=== PATIENT | male | born 1985 | race Caucasian/White ===

== ENCOUNTER 2021-11-04 18:04 | Inpatient (IN) | payer BC, SELFPAY ==
[~2021-11-04 18:04] MED LIST: Iopamidol 370 76% 100 ML VIAL ONE
[2021-11-04] MEDS ORDERED: Ondansetron PF 4 MG/2 ML Vial ONE (18:52)
[2021-11-04] MEDS ORDERED: Morphine 4 MG/ML VIAL ONE (18:52)
[2021-11-04 19:08] LABS: #Monocytes 0.6 10x3/uL (0.0-1.1); #Neutrophils 7.5 10x3/uL (1.5-8.4); %Basophils 0.3 % (0.0-2.0); %Eosinophils 0.2 % (0.0-6.0); %Lymphocytes 9.2 % (18.0-47.0); %Monocytes 6.2 % (0.0-10.0); %Neutrophils 83.7 % (40.0-75.0); Hemoglobin 14.2 g/dL (13.5-17.5); Mean Corpuscular HGB CONC 34.1 g/dL (32.0-36.0); Mean Corpuscular Hemoglobin 29.3 pg (27.0-33.0); Platelet Count 305 10x3/uL (150-450); RBC Distribution Width 11.9 % (11.5-14.5); Red Blood Cell (RBC) Count 4.84 10x6/uL (4.32-5.72)
[2021-11-04 19:13] LABS: Actual Bicarbonate (HCO3v) 22 mEq/L (22-28); Base Excess -0.4 mEq/L (-2.0 to +3.0); Calcium, Ionized (venous) 1.06 mmol/L (1.16-1.32); Chloride (VBG) 95 mmol/L (98-106); Potassium (VBG) 4.04 mmol/L (3.70-5.30); Puncture Site Other Site; Sodium 129.3 mmol/L (133-146); pH (venous) 7.48 (7.32-7.43)
[2021-11-04 19:20] LABS: ALT (SGPT) 12 U/L (8-55); AST (SGOT) 12 U/L (5-34); Albumin 3.6 g/dL (3.5-5.0); Alkaline Phosphatase 73 U/L (40-110); Anion Gap 17 mmol/L (10-20); BUN (Urea Nitrogen) 11 mg/dL (8.9-20.6); Bilirubin, Total 1.2 mg/dL (0.2-1.2); CK (CPK) 13 U/L (30-200); Calc. Creatinine Clearance 0 mL/min (70-130); Calcium 9.3 mg/dL (7.8-10.44); Carbon Dioxide 21 mmol/L (22-29); Chloride 96 mmol/L (98-107); Globulin 3.9 g/dL (2.4-3.5); Glucose 349 mg/dL (70-105); Lipase 8 U/L (8-78); Magnesium 1.6 mg/dL (1.6-2.6); Potassium 4.1 mmol/L (3.5-5.1); Protein, Total 7.5 g/dL (6.0-8.3); Sodium 130 mmol/L (136-145)
[2021-11-04] MEDS ORDERED: Cefepime 2 GM VIAL ONE (23:28)
[2021-11-05 00:27] LABS: SARS-CoV-2 NAA Rapid Test Not Detected (NotDetected)
[2021-11-05 00:27] LABS: Troponin I Less than 0.010 ng/mL (< 0.028)
[2021-11-05 00:37] LABS: Acetaminophen Less than 10.0 mcg/mL (10.0-30.0); Alcohol Less than 10 mg/dL (Less than 10); Salicylate Less than 8.0 mg/dL (15.0-30.0)
[2021-11-05] MEDS ORDERED: Insulin Regular 300 UNITS/3 ML VIAL ONE (00:40)
[2021-11-05 00:58] VITALS: BMI 40.1
[2021-11-05] MEDS ORDERED: Norepinephrine 8 MG/0.9% NS 250 ML IVPB SCH (01:00)
[2021-11-05] MEDS ORDERED: Cefepime 2 GM in Sodium Chloride 0.9% 100 ML IVPB SCH (01:00)
[2021-11-05] MEDS ORDERED: Ondansetron PF 4 MG/2 ML Vial IVP PRN (01:17)
[2021-11-05] MEDS ORDERED: Carvedilol 6.25 MG TAB PO SCH (01:30)
[2021-11-05] MEDS ORDERED: Insulin Regular 300 UNITS/3 ML VIAL IVP SCH (01:30)
[2021-11-05] MEDS ORDERED: Morphine 4 MG/ML VIAL SLOW IVP SCH (01:30)
[2021-11-05] MEDS: Lidocaine 5% Patch TD SCH (01:46)
[2021-11-05] MEDS ORDERED: VANCOMYCIN 2 GRAM/400 ML BAG 2 GM in Premix Bag 1 BAG IVPB SCH (03:00)
[2021-11-05] MEDS: Ketorolac Tromethamine 30 MG/ML VIAL IVP SCH ×4 (03:00→19:41)
[2021-11-05] MEDS ORDERED: HumaLOG 300 UNITS/3 ML VIAL SC SCH ×3 (03:15→12:00)
[2021-11-05 03:31] LABS: Manual Diff?? YES; Mean Corpuscular HGB CONC 33.7 g/dL (32.0-36.0); Mean Corpuscular Hemoglobin 29.2 pg (27.0-33.0); Mean Corpuscular Volume 86.6 fl (81.2-95.1); Mean Platelet Volume 10.8 fl (7.4-10.4); Platelet Count 305 10x3/uL (150-450); Red Blood Cell (RBC) Count 4.79 10x6/uL (4.32-5.72); White Blood Cell (WBC) Count 13.2 10x3/uL (3.5-10.5)
[2021-11-05 03:32] LABS: MDiff Complete? YES
[2021-11-05 03:41] LABS: Anion Gap 19 mmol/L (10-20); BUN (Urea Nitrogen) 13 mg/dL (8.9-20.6); Calc. Creatinine Clearance 302 mL/min (70-130); Calcium 8.3 mg/dL (7.8-10.44); Carbon Dioxide 19 mmol/L (22-29); Chloride 97 mmol/L (98-107); Glucose 310 mg/dL (70-105); Magnesium 1.6 mg/dL (1.6-2.6); Potassium 4.2 mmol/L (3.5-5.1); Sodium 131 mmol/L (136-145)
[2021-11-05 03:42] LABS: Troponin I Less than 0.010 ng/mL (< 0.028)
[2021-11-05 04:09] LABS: Band 10 % (5-11); Lymphocytes 1 % (21-51); Monocytes 4 % (0-10); Neutrophil 84 % (42-75); Platelet Morphology Comment Appears Adequate; Reactive Lymphocytes 1 % (0-10)
[2021-11-05] MEDS: Cefepime 2 GM in Sodium Chloride 0.9% 100 ML IVPB SCH ×2 (09:19→15:56)
[2021-11-05] MEDS: metFORMIN 500 MG TAB PO SCH ×2 (09:20→15:57)
[2021-11-05] MEDS: Lantus 1000 UNITS/10 ML VIAL SC SCH (09:21)
[2021-11-05] MEDS: Vancomycin 1.5 GRAM/300 ML BAG 1.5 GM in Premix Bag 1 BAG IVPB SCH ×2 (11:29→19:41)
[2021-11-05] MEDS: HumaLOG 300 UNITS/3 ML VIAL SC PRN ×3 (11:55→20:23)
[2021-11-05] MEDS ORDERED: Dextrose 50% Abboject 50 ML SYRINGE IVP PRN (12:00)
[2021-11-05] MEDS ORDERED: Dextrose 5% in Water 1,000 ML IV PRN (12:00)
[2021-11-05] MEDS: Transdermal Patch Removal TOP SCH (13:40)
[2021-11-05] MEDS: Carvedilol 6.25 MG TAB PO SCH (15:56)
[2021-11-05 16:15] LABS: Amphetamine Not Detected (NotDetected); Barbiturates Screen Not Detected (NotDetected); Benzodiazepine Screen Not Detected (NotDetected); Cocaine Metabolite Screen Not Detected (NotDetected); Methadone Not Detected (NotDetected); Methamphetamine Not Detected (NotDetected); Opiate Screen Detected (NotDetected); Oxycodone Screen Not Detected (NotDetected); Phencyclidine (PCP) Not Detected (NotDetected); THC/Cannabinoid Screen Not Detected (NotDetected); Tricyclic Screen Not Detected (NotDetected)
[2021-11-06] MEDS: Cefepime 2 GM in Sodium Chloride 0.9% 100 ML IVPB SCH ×2 (00:43→08:33)
[2021-11-06] MEDS: Lidocaine 5% Patch TD SCH (02:18)
[2021-11-06] MEDS: Ketorolac Tromethamine 30 MG/ML VIAL IVP SCH ×2 (02:18→08:33)
[2021-11-06 03:29] LABS: #Eosinphils 0.1 10x3/uL (0.0-0.5); #Monocytes 0.7 10x3/uL (0.0-1.1); #Neutrophils 6.2 10x3/uL (1.5-8.4); %Basophils 0.2 % (0.0-2.0); %Eosinophils 0.6 % (0.0-6.0); %Lymphocytes 13.1 % (18.0-47.0); %Monocytes 8.5 % (0.0-10.0); %Neutrophils 77.2 % (40.0-75.0); Mean Corpuscular HGB CONC 33.5 g/dL (32.0-36.0); Mean Corpuscular Volume 86.4 fl (81.2-95.1); Mean Platelet Volume 10.5 fl (7.4-10.4); Platelet Count 268 10x3/uL (150-450); RBC Distribution Width 12.1 % (11.5-14.5); Red Blood Cell (RBC) Count 4.49 10x6/uL (4.32-5.72)
[2021-11-06 03:36] LABS: Vancomycin, Trough 10.3 ug/mL
[2021-11-06] MEDS: HumaLOG 300 UNITS/3 ML VIAL SC PRN ×5 (04:00→20:45)
[2021-11-06] MEDS: VANCOMYCIN 1.75 GM/350 ML BAG 1.75 GM in Premix Bag 1 BAG IVPB SCH ×2 (04:01→12:05)
[2021-11-06 06:35] LABS: Anion Gap 17 mmol/L (10-20); BUN (Urea Nitrogen) 19 mg/dL (8.9-20.6); CRP (Inflammatory) 19.99 mg/dL (= or < 0.5); Calc. Creatinine Clearance 316 mL/min (70-130); Carbon Dioxide 18 mmol/L (22-29); Chloride 100 mmol/L (98-107); Glucose 274 mg/dL (70-105); Potassium 3.8 mmol/L (3.5-5.1); Sodium 131 mmol/L (136-145)
[2021-11-06] MEDS: Carvedilol 6.25 MG TAB PO SCH ×2 (08:34→16:49)
[2021-11-06] MEDS: Lantus 1000 UNITS/10 ML VIAL SC SCH (08:34)
[2021-11-06] MEDS: Transdermal Patch Removal TOP SCH (13:53)
[2021-11-06] MEDS: cefTRIAXone\\ROCEPHIN 2 GM in Sodium Chloride 0.9% 100 ML IVPB SCH (15:13)
[2021-11-06] MEDS ORDERED: Acetaminophen 325 MG TAB PO PRN (17:09)
[2021-11-06] MEDS: HYDROcodone/Acetaminophen 5/325 mg Tablet PO PRN (17:27)
[2021-11-07] MEDS: Lidocaine 5% Patch TD SCH (01:19)
[2021-11-07] MEDS: HumaLOG 300 UNITS/3 ML VIAL SC PRN ×5 (01:20→21:21)
[2021-11-07] MEDS: HYDROcodone/Acetaminophen 5/325 mg Tablet PO PRN ×4 (01:28→20:30)
[2021-11-07 03:59] LABS: #Eosinphils 0.1 10x3/uL (0.0-0.5); #Monocytes 0.8 10x3/uL (0.0-1.1); #Neutrophils 5.9 10x3/uL (1.5-8.4); %Basophils 0.3 % (0.0-2.0); %Eosinophils 1.8 % (0.0-6.0); %Lymphocytes 11.3 % (18.0-47.0); %Monocytes 10.1 % (0.0-10.0); %Neutrophils 76.2 % (40.0-75.0); Hemoglobin 12.1 g/dL (13.5-17.5); Mean Corpuscular HGB CONC 33.8 g/dL (32.0-36.0); Mean Corpuscular Volume 85.9 fl (81.2-95.1); Mean Platelet Volume 11.1 fl (7.4-10.4); Platelet Count 261 10x3/uL (150-450); RBC Distribution Width 12.2 % (11.5-14.5); Red Blood Cell (RBC) Count 4.17 10x6/uL (4.32-5.72); White Blood Cell (WBC) Count 7.8 10x3/uL (3.5-10.5)
[2021-11-07 04:28] LABS: Anion Gap 14 mmol/L (10-20); BUN (Urea Nitrogen) 13 mg/dL (8.9-20.6); Calc. Creatinine Clearance 363 mL/min (70-130); Carbon Dioxide 23 mmol/L (22-29); Chloride 102 mmol/L (98-107); Glucose 239 mg/dL (70-105); Sodium 135 mmol/L (136-145)
[2021-11-07] MEDS: Lantus 1000 UNITS/10 ML VIAL SC SCH (08:16)
[2021-11-07] MEDS: Carvedilol 6.25 MG TAB PO SCH ×2 (08:16→16:18)
[2021-11-07] MEDS ORDERED: Morphine 4 MG/ML VIAL SLOW IVP PRN (11:14)
[2021-11-07] MEDS: Transdermal Patch Removal TOP SCH (14:50)
[2021-11-07] MEDS: cefTRIAXone\\ROCEPHIN 2 GM in Sodium Chloride 0.9% 100 ML IVPB SCH (16:18)
[2021-11-08] MEDS: Lidocaine 5% Patch TD SCH (02:31)
[2021-11-08 04:41] LABS: #Eosinphils 0.2 10x3/uL (0.0-0.5); #Monocytes 0.7 10x3/uL (0.0-1.1); #Neutrophils 4.7 10x3/uL (1.5-8.4); %Basophils 0.4 % (0.0-2.0); %Eosinophils 2.6 % (0.0-6.0); %Lymphocytes 18.5 % (18.0-47.0); %Monocytes 10.3 % (0.0-10.0); %Neutrophils 67.8 % (40.0-75.0); Hemoglobin 13.1 g/dL (13.5-17.5); Mean Corpuscular HGB CONC 33.2 g/dL (32.0-36.0); Mean Corpuscular Hemoglobin 28.7 pg (27.0-33.0); Mean Corpuscular Volume 86.6 fl (81.2-95.1); Mean Platelet Volume 11.2 fl (7.4-10.4); Platelet Count 299 10x3/uL (150-450); RBC Distribution Width 12.2 % (11.5-14.5); Red Blood Cell (RBC) Count 4.56 10x6/uL (4.32-5.72); White Blood Cell (WBC) Count 6.9 10x3/uL (3.5-10.5)
[2021-11-08] MEDS: HumaLOG 300 UNITS/3 ML VIAL SC PRN (04:50)
[2021-11-08 04:53] LABS: Anion Gap 15 mmol/L (10-20); BUN (Urea Nitrogen) 16 mg/dL (8.9-20.6); Calc. Creatinine Clearance 363 mL/min (70-130); Calcium 9.8 mg/dL (7.8-10.44); Carbon Dioxide 25 mmol/L (22-29); Chloride 99 mmol/L (98-107); Glucose 241 mg/dL (70-105); Potassium 4.4 mmol/L (3.5-5.1); Sodium 135 mmol/L (136-145)
[2021-11-08 05:09] LABS: INR-International Normal Ratio 1.1; Prothrombin Time 11.5 sec (9.5-12.1)
[2021-11-08] MEDS: HYDROcodone/Acetaminophen 5/325 mg Tablet PO PRN (05:42)
[2021-11-08] MEDS: Carvedilol 6.25 MG TAB PO SCH (08:27)
[2021-11-08] MEDS: Lantus 1000 UNITS/10 ML VIAL SC SCH (08:27)
[2021-11-08 12:05] VITALS: BP 130/83; TEMP 97.6
[2021-11-08] MEDS: cefTRIAXone\\ROCEPHIN 2 GM in Sodium Chloride 0.9% 100 ML IVPB SCH (14:14)
== END 2021-11-08 14:59 | disposition home or self-care (01) | DRG 853 ==
LOC: CSHERS 18:04 → CSHIMCU 11-05 00:10 → CSHTELE 11-07 10:51
PROVIDERS: ADMIT Family Medicine; ATTEND Family Medicine
PROC: 3E03329 Introduction of Other Anti-infective into Peripheral Vein, Percutaneous Approach (ICD-10-PCS; 2021-11-04)
PROC: 0JBR0ZZ Excision of Left Foot Subcutaneous Tissue and Fascia, Open Approach (ICD-10-PCS; principal; 2021-11-07)
DX: A40.9 Streptococcal sepsis, unspecified (principal); J96.01 Acute respiratory failure with hypoxia; E87.1 Hypo-osmolality and hyponatremia; M86.8X7 Other osteomyelitis, ankle and foot; E87.3 Alkalosis; L03.116 Cellulitis of left lower limb; E11.52 Type 2 diabetes mellitus with diabetic peripheral angiopathy with gangrene; I96 Gangrene, not elsewhere classified; L97.528 Non-pressure chronic ulcer of other part of left foot with other specified severity; J98.11 Atelectasis; E11.69 Type 2 diabetes mellitus with other specified complication; E11.628 Type 2 diabetes mellitus with other skin complications; R07.89 Other chest pain; L08.9 Local infection of the skin and subcutaneous tissue, unspecified; R59.0 Localized enlarged lymph nodes; E11.621 Type 2 diabetes mellitus with foot ulcer; E11.42 Type 2 diabetes mellitus with diabetic polyneuropathy; Z20.822 Contact with and (suspected) exposure to COVID-19; Z79.899 Other long term (current) drug therapy; Z79.4 Long term (current) use of insulin; Z81.1 Family history of alcohol abuse and dependence
CPT/HCPCS: 36415; 36416; 71045; 71275; 74174; 74177; 80048; 80053; 80202; 80306; 80307; 82550; 82805; 83036; 83605; 83690; 83735; 83880; 84443; 84484; 85025; 85610; 85652; 86140; 87040; 87077; 87149; 87186; 93005; 94760; 96365; 96375; J0692; J0696; J1815; J1885; J1956; J2270; J2405; J3370; J3490; Q9967; U0002

== ENCOUNTER 2023-01-15 12:40 | Outpatient (CLI) | payer BC ==
[~2023-01-15 12:40] MED LIST changes: -Iopamidol 370 76% 100 ML VIAL ONE; +Magnevist 469MG/ML 20 ML VIAL ONE
== END 2023-01-15 12:41 | disposition home or self-care (01) ==
LOC: CSHMRI 12:40
PROVIDERS: ATTEND Family Medicine
DX: M86.9 Osteomyelitis, unspecified (principal); L97.511 Non-pressure chronic ulcer of other part of right foot limited to breakdown of skin; R93.6 Abnormal findings on diagnostic imaging of limbs

== ENCOUNTER 2023-02-16 06:11 | Day surgery (SDC) | payer BC ==
[2023-02-15 11:16] VITALS: BMI 40.0
[2023-02-16] MEDS ORDERED: Lidocaine 2% 10 ML INJ ONE (10:35)
[2023-02-16] MEDS ORDERED: Bupivacaine PF 0.5% 30 ML VIAL ONE (10:35)
[2023-02-16] MEDS ORDERED: CEFAZOLIN 2 GM VIAL ONE (12:28)
[2023-02-16] MEDS ORDERED: PROPOFOL 20 ML ONE (12:43)
[2023-02-16] MEDS ORDERED: Midazolam HCl 2 mg/2 ml Vial ONE (12:44)
[2023-02-16] MEDS ORDERED: Fentanyl 250 MCG/5 ML VIAL ONE (12:44)
== END 2023-02-16 15:25 | disposition home or self-care (01) ==
LOC: CSHSDC 06:11
PROVIDERS: ATTEND Podiatrist Foot & Ankle Surgery
PROC: 0Y6R0Z3 Detachment at Right 2nd Toe, Low, Open Approach (ICD-10-PCS; principal; 2023-02-16)
PROC: 0Y6T0Z3 Detachment at Right 3rd Toe, Low, Open Approach (ICD-10-PCS; principal; 2023-02-16)
DX: M86.171 Other acute osteomyelitis, right ankle and foot (principal); L97.519 Non-pressure chronic ulcer of other part of right foot with unspecified severity; E11.9 Type 2 diabetes mellitus without complications; I10 Essential (primary) hypertension; F32.A Depression, unspecified; Z79.899 Other long term (current) drug therapy; Z79.4 Long term (current) use of insulin
CPT/HCPCS: 36416; 88305; 88311; J2250; J2704; J3010; S0020

== ENCOUNTER 2023-10-26 10:51 | Outpatient (CLI) | payer BC | END 2023-10-26 10:52 | disposition home or self-care (01) | LOC: CSHWCC 10:51 | PROVIDERS: ATTEND Nurse Practitioner Family | DX: T81.32XD Disruption of internal operation (surgical) wound, not elsewhere classified, subsequent encounter (principal); E11.622 Type 2 diabetes mellitus with other skin ulcer; L97.105 Non-pressure chronic ulcer of unspecified thigh with muscle involvement without evidence of necrosis; Z89.611 Acquired absence of right leg above knee | CPT/HCPCS: 11042 ==

== ENCOUNTER 2025-04-02 14:08 | Outpatient (CLI) | payer MEDICARE | END 2025-04-02 14:09 | disposition home or self-care (01) | LOC: CSHDTY/OP 14:08 | PROVIDERS: ATTEND Nurse Practitioner Family | DX: Z71.3 Dietary counseling and surveillance (principal); E11.65 Type 2 diabetes mellitus with hyperglycemia | CPT/HCPCS: 97802 ==